=== PATIENT | male | born 1990 | race Caucasian/White ===

== ENCOUNTER 2024-10-14 05:40 | Emergency (ER) | payer BC, SELFPAY ==
[2024-10-14 05:44] VITALS: BP 144/80
--- NOTE | 2024-10-14 06:30 | ED.GENMED ---
History of Present Illness
General
Chief Complaint: Abdominal Symptoms
Source: patient and spouse
Exam Limitations: none
Time Seen by Provider: 10/14/24 06:19
Nursing documentation reviewed up to this point in time: agreed with
History of Present Illness
History of Present Illness:
34-year-old male presents emergency department due to nausea vomiting and diarrhea. He tested positive for flu a yesterday afternoon. He went to urgent care. He said he was having bodyaches, went to urgent care and was prescribed Tamiflu. He
took 1 dose and threw it up.
Past History
Past History
ED Past Medical History: HTN
ED Past Surgical History: Other ([place] teeth)
Social History
Tobacco: Non-smoker
Alcohol: None
Drug: None
Personal:
Living: with family
Employment: Employed
Review of Systems
Review of Systems
Allergies reviewed?: Yes
All Other Systems: Not applicable
Constitutional: Reports fever
EENT: Reports no symptoms
Respiratory: Reports no symptoms
Cardiac: Reports no symptoms
ABD/GI: Reports vomiting and diarrhea
: Reports no symptoms
Musculoskeletal: Reports muscle pain
Skin: Reports no symptoms
Neurological: Reports no symptoms
Endocrine: Reports no symptoms
Hematologic/Lymphatic: Reports no symptoms
Psychiatric: Reports no symptoms
Phy Exam
Physical Exam
Physical Exam:
Physical Exam
General: no apparent distress, fever 100.5
Neck: supple. no meningeal signs. normal posterior pharynx
Heart: s1/s2 regular rate and rhythm, no murmur. equal radial
pulses.
HEENT: Pupils equal round reactive to light, EOMI
Lungs: no acute respiratory distress. clear bilaterally
Abdomen: normal bowel sounds. not tender. no CVAT
Neuro: alert and oriented. no focal neurological deficits cranial nerves II through XII intact
Skin: no rash
Psychiatric: well kept. interactive and cooperative
Extremities: no edema. no calf tenderness. negative homans. good distal pulses
Course
Orders/Labs/Results
Orders:
Orders
10/14/24 06:29
Ondansetron HCl [Zofran] 4 mg PO NOW STA
10/14/24 06:30
Ondansetron Orally Disint [Zofran Odt (Orally Disintegrating)] 4 mg .ROUTE .STK-MED ONE
10/14/24 06:38
Ondansetron Orally Disint [Zofran Odt (Orally Disintegrating)] 4 mg PO NOW STA
10/14/24 07:15
Acetaminophen [Tylenol] 650 mg .ROUTE .STK-MED ONE
10/14/24 07:17
Acetaminophen [Tylenol] 650 mg PO NOW STA
Vital Signs
Initial and Last Documented VS:
Initial Vital Signs
Temp Pulse Resp BP
100.5 F H 102 24 144/80
10/14/24 05:44 10/14/24 05:44 10/14/24 05:44 10/14/24 05:44
Last Documented Vital Signs
Temp Pulse Resp BP Pulse Ox
100 F 97 18 143/90 98
10/14/24 08:34 10/14/24 07:56 10/14/24 07:56 10/14/24 07:56 10/14/24 07:56
MDM/Problems Addressed
Differential Diagnosis Includes:
Hypovolemia, influenza
MDM/Problems Addressed:
34 yo male with nausea vomiting diarrhea, likely due to influenza. Tolerates oral fluids after Zofran ODT. Stable for discharge.
*Pulse Oximetry
Patient hypoxic: no
*Critical Care Note
Total Time (30-74mins, 75-104mins- exclusive of procedures): Not Applicable
Data Reviewed
Further Testing Considered But Not Given:
Labs and CT scan not indicated
Patient Management
Social determinants of health affecting care: Living situation and Strong social support
Escalation/DeEscalation of care consider admission/obs:
Admission not indicated
ED Attending Note
-
Portions of this chart may have been created with voice recognition software.� Occasional wrong word or��sound alike� substitutions may have occurred due to the inherent limitations of voice recognition software.
Discharge Plan
Departure
Patient Disposition: Home (Routine Discharge)
Date of Disposition: 10/14/24
Time of Disposition: 08:52
Patient with high blood pressure during this ER visit?: Yes
Condition: Good
Discharge Problem:
Influenza A, Nausea vomiting and diarrhea
Instructions: Flu, Diarrhea in teens and adults, Nausea and Vomiting, Adult (DC), BLOOD PRESSURE
Prescriptions:
New
ondansetron 4 mg tablet,disintegrating
4 mg PO Q8H PRN (Reason: nausea and vomiting) 4 Days Qty: 12 0RF
Referrals:
Antonia Sharpe MD [Family Provider] - Call in 1-3 days for appt
Interventions
Interventions:
*Risk Screen - Suicide Last Done: 10/14/24 05:44
*General Assessment Last Done: 10/14/24 06:42
*Neglect/Abuse Screening Last Done: 10/14/24 05:44
*ED COVID-19 Vaccine History Last Done: 10/14/24 06:42
*Nursing Disposition Last Done: 10/14/24 09:13
[facility] Assessment Last Done: 10/14/24 07:13
ED- Pulmonary Assessment Last Done: 10/14/24 07:13
Discharge Date and Time
Discharge Date/Time: 10/14/24 09:43
Print Language: BRUNEIAN
[2024-10-14] MEDS: ZOFRAN ODT (ORALLY DISINTEGRATING) 4 MG PO (06:40)
[2024-10-14 07:08] VITALS: BP 148/80
[2024-10-14] MEDS: TYLENOL 650 MG PO (07:18)
[2024-10-14 07:56] VITALS: BP 143/90
== END 2024-10-14 09:43 | disposition home or self-care (01) ==
LOC: EMR 05:40
PROVIDERS: EMERGENCY PHYSICIAN Emergency Medicine; FAMILY PHYSICIAN Family Medicine
DX: J11.1 Influenza due to unidentified influenza virus with other respiratory manifestations (principal); R11.2 Nausea with vomiting, unspecified; R19.7 Diarrhea, unspecified; I10 Essential (primary) hypertension
CPT/HCPCS: 99283